=== PATIENT | female | born 1965 | race African-American/Black ===

== ENCOUNTER 2019-02-22 15:18 | Emergency (ER) | payer MEDICAID ==
[~2019-02-22] VITALS: Ht 167.6 cm; Wt 70.0 kg
[2019-02-22 15:22] VITALS: BP 100/67
[2019-02-22] MEDS: HYDROCODONE/ACETAMINOPHEN 5/325MG TABLET PO ONE (17:01)
[2019-02-22] MEDS: ONDANSETRON 4MG ODT PO ONE (17:02)
== END 2019-02-22 18:19 | disposition left against medical advice (07) ==
LOC: ER 15:18
DX: G43.909 Migraine, unspecified, not intractable, without status migrainosus (principal); H53.149 Visual discomfort, unspecified; J45.909 Unspecified asthma, uncomplicated; F17.200 Nicotine dependence, unspecified, uncomplicated
CPT/HCPCS: 99283; Q0162